=== PATIENT | female | born 1985 | race Asian ===

== ENCOUNTER 2020-08-10 00:06 | Observation (INO) | payer MEDICAID ==
[~2020-08-10] VITALS: Ht 160 cm; Wt 56.2 kg
[2020-08-10] MEDS ORDERED: LR 1,000 ML IV SCH (00:45)
[2020-08-10] MEDS ORDERED: TERBUTALINE SULFATE 1 MG/ML VIAL SUBCUT PRN (01:00)
[2020-08-10] MEDS ORDERED: TERBUTALINE SULFATE 1 MG/ML VIAL ONE (01:18)
== END 2020-08-10 03:00 | disposition home or self-care (01) ==
LOC: SPU 00:06
PROVIDERS: ADMIT Obstetrics & Gynecology; ATTEND Obstetrics & Gynecology
DX: O42.913 Preterm premature rupture of membranes, unspecified as to length of time between rupture and onset of labor, third trimester (principal); Z3A.30 30 weeks gestation of pregnancy
CPT/HCPCS: 76815; 81002; 96372; G0378; J3105; J7120; 59899